=== PATIENT | male | born 1955 | race Caucasian/White ===

== ENCOUNTER 2022-03-20 17:05 | Emergency (ER) | payer OTHER ==
[~2022-03-20] VITALS: Ht 182.9 cm; Wt 93.0 kg
[2022-03-20 17:30] VITALS: BP 85/50
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
--- NOTE | 2022-03-20 17:58 | NUR ---
seen by Obdulia CASTREJON- septic work up done
--- NOTE | 2022-03-20 17:59 | NUR ---
IVF fluids given as ordered by Obdulia CASTREJON labs drawn and sent to labs
[2022-03-20] MEDS ORDERED: IV NS 0.9% 1,000 ML BAG IV ONE ×2 (18:00)
[2022-03-20 18:12] LABS: BASOPHILS # (AUTO) 0.1 K/uL (0.0-0.2); BASOPHILS % (AUTO) 0.6 % (0.0-2.0); HEMATOCRIT 41 % (39-51); MEAN CORPUSCULAR HGB CONC 34 g/dl (31.0-36.0); MEAN CORPUSCULAR VOLUME 100 fL (80-96); MONOCYTES # (AUTO) 0.5 K/uL (0.1-1.30); MONOCYTES % (AUTO) 4.9 % (2.0-12.0); NEUTROPHILS # (AUTO) 7.9 K/uL (1.8-8.9); NEUTROPHILS % (AUTO) 83.5 % (43.0-81.0); PLATELET COUNT (AUTO) 206 K/uL (150-450); RED BLOOD CELL COUNT(AUTO) 4.12 MIL/uL (4.5-6.0); WHITE BLOOD COUNT (AUTO) 9.5 K/uL (4.3-11.0)
--- NOTE | 2022-03-20 18:17 | NUR ---
[id number]
[2022-03-20 18:25] LABS: CALCIUM, SERUM 8.6 mg/dL (8.5-10.1); CARBON DIOXIDE 16 mmol/L (21-32); CHLORIDE 103 mmol/L (98-107); CREATININE 2.5 mg/dL (0.6-1.3); GLUCOSE 108 mg/dL (74-106); POTASSIUM 5.1 mmol/L (3.5-5.1); SODIUM SERUM 135 mmol/L (136-145); UREA NITROGEN, BLOOD 36 mg/dL (7-18)
[2022-03-20 18:30] LABS: ALANINE AMINOTRANSFERASE 111 U/L (12-78); ALBUMIN 3.2 g/dL (3.4-5.0); ALKALINE PHOSPHATASE 55 U/L (46-116); ASPARTATE AMINOTRANSFERASE 127 U/L (15-37); BILIRUBIN,DIRECT 0.1 mg/dL (0.0-0.2); BILIRUBIN,TOTAL 0.6 mg/dL (0.2-1.0)
--- NOTE | 2022-03-20 18:36 | NUR ---
LAB CALLED AND LACTIC ACID IS 4.7
--- NOTE | 2022-03-20 19:03 | NUR ---
COVID TEST COLLECTED AND SENT
--- NOTE | 2022-03-20 19:04 | NUR ---
CALLED [facility] AND OPENED CASE WITH JORDAN
--- NOTE | 2022-03-20 19:38 | NUR ---
Patient does not wish to proceed with medical care recommended by Ketata [employer]. Patient given information related to possible complications, up to and including , which could occur as a result of leaving the hospital at this time. Patient verbalizes understanding of risks involved due to leaving against medical advice. Patient has signed AMA form. PT ambulatory with a steady gait. IV removed. Catheter intact and site benign. Pressure and 4x4 applied to site. No bleeding noted.
== END 2022-03-20 19:45 | disposition left against medical advice (07) ==
LOC: ER 18:06
DX: N17.9 Acute kidney failure, unspecified (principal); K70.10 Alcoholic hepatitis without ascites; I95.9 Hypotension, unspecified; I10 Essential (primary) hypertension
CPT/HCPCS: 99285; 96360; 71045; 96361; 93005; 84145; 85025; 80048; 87040 ×2; 83605; 80076; 36415; 84484; 85730; J7030 ×2